=== PATIENT | male | born 1945 | race Asian ===

== ENCOUNTER → 2018-03-15 | Outpatient (CLI) | payer MEDICARE, OTHER | END | disposition home or self-care (01) | LOC: RADPV 11:23 | PROVIDERS: ATTEND Family Medicine | DX: M17.11 Unilateral primary osteoarthritis, right knee (principal); M85.89 Other specified disorders of bone density and structure, multiple sites; M25.562 Pain in left knee; M81.0 Age-related osteoporosis without current pathological fracture; Z96.652 Presence of left artificial knee joint | CPT/HCPCS: 77080 ==